=== PATIENT | female | born 1940 ===

== ENCOUNTER → 2017-09-14 | Emergency (ER) | payer OTHER ==
[~2017-09-14] VITALS: Ht 152.4 cm; Wt 65.3 kg
[~2017-09-14] MED LIST: ANTIVERT/2525 MG; ASA81 MG; COZAAR100 MG; GABARONE300 MG; JANUMET 50-1,1 UDTAB; LANTUS SOL100 UNIT/1; SYNTHROID50 MCG
== END | disposition home or self-care (01) ==
LOC: ER 14:17
DX: R42 Dizziness and giddiness (principal)

== ENCOUNTER 2018-10-29 09:37 | Outpatient (CLI) | payer OTHER | END 2018-10-29 09:44 | disposition home or self-care (01) | LOC: TOM 09:37 | DX: R55 Syncope and collapse (principal); R42 Dizziness and giddiness ==

== ENCOUNTER 2019-06-02 18:37 | Emergency (ER) | payer OTHER ==
[~2019-06-02] VITALS: Ht 152.4 cm; Wt 83.5 kg
== END 2019-06-03 10:01 | disposition home or self-care (01) ==
LOC: ER 18:37
DX: I48.0 Paroxysmal atrial fibrillation (principal); I16.0 Hypertensive urgency; I10 Essential (primary) hypertension